=== PATIENT | female | born 1940 | race Caucasian/White ===

== ENCOUNTER 2019-01-18 06:35 | Day surgery (SDC) | payer MEDICARE, OTHER ==
[2019-01-18] MEDS ORDERED: Lactated Ringers 1,000 ML IV SCH (07:00)
[2019-01-18] MEDS ORDERED: Midazolam 1 MG/ML 2 ML SDV ONE (07:16)
[2019-01-18] MEDS ORDERED: fentaNYL 100 MCG/2 ML SDV ONE (07:16)
[2019-01-18] MEDS ORDERED: Propofol 200 MG/20 ML SDV ONE (07:16)
--- NOTE | 2019-01-18 14:41 | OR ---
DATE OF PROCEDURE: 01/18/2019 SURGEON: Gaurav Condon MD PREOPERATIVE DIAGNOSIS: History of colon polyps. POSTOPERATIVE DIAGNOSIS: Small polyp, 50 cm from the anal verge, history of colon polyps. PROCEDURE PERFORMED: Colonoscopy to the cecum with biopsy resection of small polyp, 50 cm from the anal verge. SURGEON: Gaurav Condon MD. ANESTHESIA: IV anesthesia with monitored anesthesia care. INDICATION: This 78-year-old white female is referred for a colonoscopy because of a history of colon polyps. She says her last colonoscopic exam was done five years ago. I counseled her for the procedure including risks and alternatives, and she gave her informed consent to proceed. DESCRIPTION OF PROCEDURE: The patient was placed in the left lateral decubitus position. IV anesthesia was administered by the Anesthesia Service. Time-out was held. A rectal exam was performed, which was unremarkable. The flexible video Olympus colonoscope was introduced through her anus, up her rectum, and out her colon all the way to the cecum. En route, at about 50 cm from anal verge, we saw a small polyp, which was removed with a few bites of the biopsy forceps. Once the cecum was reached, the scope was slowly withdrawn, examining the mucosa throughout. No other mucosal abnormalities were noted. She does have a history of diverticulosis. There was a lot of spasm present and no diverticula were seen. The scope was retroflexed in the rectum with the distal rectum appearing unremarkable. The scope was straightened and removed. She tolerated the procedure well. Gaurav Condon MD /[id number]
== END 2019-01-18 09:58 | disposition home or self-care (01) ==
LOC: JP.SDS 06:35
PROVIDERS: ATTEND Surgery
DX: Z12.11 Encounter for screening for malignant neoplasm of colon (principal); D12.5 Benign neoplasm of sigmoid colon; I10 Essential (primary) hypertension; E78.00 Pure hypercholesterolemia, unspecified; Z88.8 Allergy status to other drugs, medicaments and biological substances; Z87.19 Personal history of other diseases of the digestive system; Z86.010 Personal history of colon polyps
CPT/HCPCS: 45380; J2250; J2704; J3010; J7120